=== PATIENT | male | born 1980 | race Hispanic/Latino ===

== ENCOUNTER 2018-03-01 07:57 | Emergency (ER) | payer BC, OTHER ==
[~2018-03-01 07:57] MED LIST: AMOX-429 PO; METF500T6 PO
== END 2018-03-01 08:37 | disposition home or self-care (01) ==
LOC: EDH 07:57
DX: B02.9 Zoster without complications (principal); E11.9 Type 2 diabetes mellitus without complications; Z87.891 Personal history of nicotine dependence

== ENCOUNTER 2018-07-22 15:51 | Emergency (ER) | payer OTHER ==
[~2018-07-22 15:51] MED LIST changes: +METF-444 PO; -METF500T6 PO
[2018-07-22] MEDS ORDERED: ASPIRIN 325 MG TABLET ONE (16:20)
[2018-07-22] MEDS ORDERED: NITROGLYCERIN 0.4 MG SL TAB SL ONE (16:21)
[2018-07-22 16:30] LABS: BASOPHILS % (AUTO) 0.2 % (0.0-5.0); EOSINOPHILS % (AUTO) 1.5 % (0.0-8.0); HEMATOCRIT 45.4 % (42-54); LYMPHOCYTES % (AUTO) 7.6 % (21.0-51.0); MEAN CORPUSCULAR HEMOGLOBIN 29.9 pg (27.0-33.0); MEAN CORPUSCULAR HGB CONC 33.7 g/dL (32.0-36.0); MEAN CORPUSCULAR VOLUME 88.5 fL (79-99); MONOCYTES % (AUTO) 4.3 % (3.0-13.0); NEUTROPHILS % (AUTO) 86.4 % (40.0-77.0); PLATELET COUNT (AUTO) 192 K/uL (130-400); RED BLOOD CELL COUNT(AUTO) 5.13 MIL/uL (4.50-6.20); RED CELL DISTRIBUTION WIDTH 12.5 % (11.0-15.5)
[2018-07-22 16:38] LABS: CREATININE 0.9 mg/dL (0.5-1.5); POTASSIUM 3.7 mmol/L (3.5-5.1)
[2018-07-22 16:40] LABS: INR 0.91 (0.85-1.15); PARTIAL THROMBOPLASTIN TIME 25.2 SEC (26.3-35.5); PROTHROMBIN TIME 9.6 SEC (9.6-11.6)
[2018-07-22 16:51] LABS: B-TYPE NATRIURETIC PEPTIDE 7 pg/mL (0-100)
[2018-07-22 16:53] LABS: ALBUMIN 3.1 g/dL (3.5-5.0); CREATINE KINASE MB 0.9 ng/mL (0.5-3.6); TOTAL PROTEIN, SERUM 6.5 g/dL (6.0-8.3)
[2018-07-22] MEDS ORDERED: MAG HYDROX/AL HYDROX/SIMETH ES 30 ML SUSP UDCUP ONE (17:22)
[2018-07-22] MEDS ORDERED: DIAZEPAM 5 MG TABLET ONE (17:22)
[2018-07-22] MEDS ORDERED: SODIUM CHLORIDE 0.9% 1000ML 1,000 ML IV ONE (17:22)
[2018-07-22] MEDS ORDERED: LIDOCAINE HCL 2% VISCOUS 15 ML UDCUP ONE (17:22)
== END 2018-07-22 20:04 | disposition home or self-care (01) ==
LOC: EDH 15:51
DX: R07.89 Other chest pain (principal); E11.9 Type 2 diabetes mellitus without complications; Z90.49 Acquired absence of other specified parts of digestive tract; Z87.891 Personal history of nicotine dependence
CPT/HCPCS: 36415; 71045; 80053; 82550; 82553; 83874; 83880; 84484 ×2; 85025; 85378; 85610; 85730; 87804 ×2; 93005 ×2; 99285; J7030

== ENCOUNTER 2022-07-27 17:43 | Emergency (ER) | payer OTHER ==
[~2022-07-27] VITALS: Ht 190.5 cm; Wt 127.0 kg
[2022-07-27] MEDS ORDERED: CLINDAMYCIN IVPB 600MG/50ML 50 ML IV SCH (18:30)
[2022-07-27 18:33] LABS: BASOPHILS % (AUTO) 0.5 % (0.0-5.0); EOSINOPHILS % (AUTO) 0.3 % (0.0-8.0); HEMATOCRIT 40.6 % (42-54); LYMPHOCYTES % (AUTO) 8.5 % (21.0-51.0); MEAN CORPUSCULAR HEMOGLOBIN 29.3 pg (27.0-33.0); MEAN CORPUSCULAR HGB CONC 33.7 g/dL (32.0-36.0); MEAN CORPUSCULAR VOLUME 86.8 fL (79-99); MONOCYTES % (AUTO) 6.8 % (3.0-13.0); NEUTROPHILS % (AUTO) 83.6 % (40.0-77.0); PLATELET COUNT (AUTO) 190 K/uL (130-400); RED BLOOD CELL COUNT(AUTO) 4.68 MIL/uL (4.50-6.20); RED CELL DISTRIBUTION WIDTH 12.8 % (11.0-15.5); WHITE BLOOD COUNT (AUTO) 6.6 K/uL (4.8-10.8)
[2022-07-27 18:39] LABS: CREATININE 1.2 mg/dL (0.5-1.5)
[2022-07-27 18:44] LABS: ALBUMIN 3.3 g/dL (3.5-5.0)
[2022-07-27] MEDS ORDERED: 0.9% NACL 500ML IV.SOLN 500 ML IV SCH (19:00)
[2022-07-27] MEDS ORDERED: INSULIN HUMULIN R 100 UNIT/ML 3ML IV ONE (19:00)
[2022-07-27] MEDS ORDERED: CLIN-141 PO (20:53)
[2022-07-27 21:23] VITALS: BP 126/74
== END 2022-07-27 21:32 | disposition home or self-care (01) ==
LOC: EDH 17:43
DX: S90.422A Blister (nonthermal), left great toe, initial encounter (principal); E11.65 Type 2 diabetes mellitus with hyperglycemia; E78.00 Pure hypercholesterolemia, unspecified; E66.9 Obesity, unspecified; Z68.35 Body mass index [BMI] 35.0-35.9, adult; Z90.49 Acquired absence of other specified parts of digestive tract; X58.XXXA Exposure to other specified factors, initial encounter; Y93.89 Activity, other specified; Y92.89 Other specified places as the place of occurrence of the external cause; Y99.8 Other external cause status
CPT/HCPCS: 99284; 96365; 96375; 80053; 85025; 82948 ×2; 36415; 73660; J1815; J7040; J3490